=== PATIENT | female | born 1995 | race Caucasian/White ===

== ENCOUNTER 2022-10-12 16:22 | Emergency (ER) | payer MEDICAID ==
[~2022-10-12] VITALS: Ht 162.6 cm; Wt 55.0 kg
[2022-10-12 16:25] VITALS: BP 143/74
[2022-10-12] MEDS ORDERED: ACETAMINOPHEN 325MG TABLET PO ONE (18:45)
[2022-10-12] MEDS ORDERED: IBUPROFEN 600MG TABLET PO ONE (18:45)
== END 2022-10-12 19:59 | disposition home or self-care (01) ==
LOC: ER 16:22
DX: B34.9 Viral infection, unspecified (principal); Z88.0 Allergy status to penicillin
CPT/HCPCS: 71046; 81025; 99283